=== PATIENT | male | born 1995 | race Two or more races ===

== ENCOUNTER 2024-09-21 23:06 | Emergency (ER) | payer MEDICAID, SELFPAY ==
[2024-09-21 23:21] VITALS: BP 125/89; PULSE 98; RESP 20; TEMP 36.8; O2SAT 97; BMI 27.1
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
== END 2024-09-22 00:46 ==
LOC: SERX 23:46
PROVIDERS: Emergency Provider Emergency Medicine; PCP Physician Assistant
DX: Z02.89 Encounter for other administrative examinations (principal)
CPT/HCPCS: 99281